=== PATIENT | female | born 1960 | race Caucasian/White ===

== ENCOUNTER 2020-03-16 22:07 | Emergency (ER) | payer BC, OTHER ==
[2020-03-16] MEDS ORDERED: Sodium Chloride 0.9% 10 ML Syringe FLUSH PRN (22:13)
[2020-03-16] MEDS ORDERED: fentaNYL 100 MCG/2 ML SDV IVPUSH ONE (22:21)
[2020-03-16] MEDS ORDERED: Ondansetron 4 MG/2 ML SDV IV ONE (22:21)
[2020-03-16] MEDS ORDERED: Lactated Ringers 1,000 ML IV ONE (22:24)
--- NOTE | 2020-03-16 22:24 | EDM.PDOC ---
ED HPI GENERAL MEDICAL PROBLEM - General Chief Complaint: Gastrointestinal Problem Stated Complaint: ER Time Seen by Provider: 03/16/20 22:18 Source of Information: Reports: Patient History Limitations: Reports: No Limitations - History of Present Illness INITIAL COMMENTS - FREE TEXT/NARRATIVE: Patient comes emergency department today from work with concerns of a sudden onset of mid abdominal pain. This patient had a gastric bypass in [address] [facility] [address] Harshal Stoddard. Really has not had much problem since her gastric bypass in 2013. She has had a gallbladder removed as well. She has felt well the last couple of days. She had a sudden onset of mid abdominal pain starting about 1900 hrs. tonight. She is really not nauseated. Pain is a constant pain in her mid abdomen. She has had no vomiting. No fever no chills. No hematuria dysuria or urinary frequency. The pain in her abdomen is now starting to go into her back. Abdominal Pain Score (Numeric/FACES): 4 - Related Data Allergies Allergy/AdvReac Type Severity Reaction Status Date / Time bacitracin Allergy Rash Verified 03/16/20 22:09 [From Neosporin ([id number])] bacitracin zinc Allergy Rash Verified 03/16/20 22:09 [From Neosporin ([id number])] bupropion [From Wellbutrin] Allergy Other Verified 03/16/20 22:59 bupropion HCl Allergy Other Verified 03/16/20 22:09 [From Wellbutrin] gabapentin Allergy Other Verified 03/16/20 22:59 Influenza Virus Vaccines Allergy Hives Verified 03/16/20 22:59 neomycin sulfate Allergy Rash Verified 03/16/20 22:09 [From Neosporin ([id number])] polymyxin B Allergy Rash Verified 03/16/20 22:09 [From Neosporin ([id number])] bandaids Allergy Rash Uncoded 03/16/20 22:09 metal Allergy Rash Uncoded 03/16/20 22:09 Home Meds: Home Meds Acetaminophen [Tylenol Arthritis Pain] 650 mg PO Q8H PRN 09/23/14 [History] Hydrochlorothiazide 50 mg PO DAILY PRN 09/23/14 [History] Calcium Carb, Citrate/Vit D3 [Citracal + D ER] 1 each PO BID 03/16/20 [History] Celecoxib [CeleBREX] 200 mg PO BID 03/16/20 [History] Cholecalciferol (Vitamin D3) [Vitamin D3] 2,000 unit PO DAILY 03/16/20 [History] Cyanocobalamin (Vitamin B-12) [B-12] 500 mcg PO DAILY 03/16/20 [History] Magnesium Oxide 400 mg PO DAILY 03/16/20 [History] Multivitamin 1 each PO DAILY 03/16/20 [History] Nystatin [Nystatin Oral Syringe] 500,000 unit TOP ASDIRECTED PRN 03/16/20 [History] Omeprazole 20 mg PO BID 03/16/20 [History] Potassium Chloride [Klor-Con 10] 10 meq PO BID 03/16/20 [History] methocarbamoL [Methocarbamol] 500 mg PO TID PRN 03/16/20 [History] Past Medical History - Past Surgical History GI Surgical History: Reports: Bariatric Procedure Social & Family History - Tobacco Use Smoking Status *Q: Current Status Unknown ED ROS GENERAL - Review of Systems Review Of Systems: Comprehensive ROS is negative, except as noted in HPI. ED EXAM, GI/ABD - Physical Exam Exam: See Below Exam Limited By: No Limitations General Appearance: Alert, WD/WN, Mild Distress Eyes: Bilateral: EOMI Ears: Normal External Exam Nose: Normal Inspection Throat/Mouth: Normal Inspection Head: Atraumatic, Normocephalic Neck: Normal Inspection, Supple, Non-Tender Respiratory/Chest: No Respiratory Distress, Lungs Clear, Normal Breath Sounds, No Accessory Muscle Use Cardiovascular: Normal Peripheral Pulses, Regular Rate, Rhythm GI/Abdominal Exam: Normal Bowel Sounds, Soft, Guarding (mid abd. ), Tender (mid abd. ). No: Distended, Rigid, Rebound, Hernia (Female) Exam: Deferred Rectal (Female) Exam: Deferred Back Exam: Normal Inspection, Full Range of Motion Extremities: Normal Inspection, Normal Range of Motion Neurological: Alert, Oriented, Normal Cognition, Normal Gait, No Motor/Sensory Deficits Psychiatric: Normal Affect, Normal Mood Skin Exam: Warm, Dry, Intact, Normal Color, No Rash Lymphatic: No Adenopathy Course - Vital Signs Last Recorded V/S: Last Vital Signs Temp 98.3 F 03/17/20 00:14 Pulse 74 03/17/20 00:14 Resp 16 03/17/20 00:14 BP 148/81 H 03/17/20 00:14 Pulse Ox 96 03/17/20 00:14 - Orders/Labs/Meds Orders: Active Orders 24 hr Category Date Time Status Abdomen Pelvis w Cont [CT] Stat Exams 03/16/20 22:14 Ordered Sodium Chloride 0.9% [Saline Flush] Med 03/16/20 22:13 Active 10 ml FLUSH ASDIRECTED PRN Peripheral IV Insertion Adult [OM.PC] Stat Oth 03/16/20 22:13 Ordered Medication Orders Sodium Chloride (Saline Flush) 10 ml FLUSH ASDIRECTED PRN PRN Reason: Keep Vein Open Labs: Laboratory Tests 03/16/20 03/16/20 03/16/20 Range/Units 22:33 22:33 22:33 WBC 10.8 H (4.0-10.0) x10^3/uL RBC 4.41 (4.00-5.50) x10^6/uL Hgb 13.4 (12.0-16.0) g/dL Hct 38.6 (33.0-47.0) % MCV 87.5 D (78.0-93.0) fL MCH 30.4 (26.0-32.0) pg MCHC 34.7 (32.0-36.0) g/dL RDW Coeff of Jennifer 15.6 H (10.0-15.0) % Plt Count 348 (130-400) x10^3/uL Neut % (Auto) 66.4 (50.0-80.0) % Lymph % (Auto) 24.0 L (25.0-50.0) % [place] % (Auto) 8.2 (2.0-11.0) % Eos % (Auto) 1.1 (0.0-4.0) % Baso % (Auto) 0.3 (0.2-1.2) % Sodium 135 L (136-145) mmol/L Potassium 3.6 (3.5-5.1) mmol/L Chloride 99 (98-107) mmol/L Carbon Dioxide 26 (21-32) mmol/L Anion Gap 13.6 (10-20) mmol/L BUN 30 H (7-18) mg/dL Creatinine 0.9 (0.55-1.02) mg/dL Est Cr Clr Drug Dosing TNP Estimated GFR (MDRD) > 60 Glucose 96 (74-106) mg/dL Lactic Acid 1.1 (0.4-2.0) mmol/L Calcium 9.2 (8.5-10.1) mg/dL Corrected Calcium 8.96 (8.5-10.1) mg/dL Total Bilirubin 0.4 (0.2-1.0) mg/dL AST 24 (15-37) U/L ALT 32 (14-59) U/L Alkaline Phosphatase 74 (46-116) U/L C-Reactive Protein < 0.2 (<=0.9) mg/dL Total Protein 7.2 (6.4-8.2) g/dL Albumin 4.3 (3.4-5.0) g/dL Globulin 2.9 Albumin/Globulin Ratio 1.48 Urine Color (YELLOW) Urine Appearance (CLEAR) Urine pH (5.0-8.0) Ur Specific Brandon Urine Protein (NEGATIVE) mg/dL Urine Glucose (UA) (NEGATIVE) mg/dL Urine Ketones (NEGATIVE) mg/dL Urine Occult Blood (NEGATIVE) Urine Nitrite (NEGATIVE) Urine Bilirubin (NEGATIVE) Urine Urobilinogen (0.2) EU/dL Ur Leukocyte Esterase (NEGATIVE) Urine RBC (NOT SEEN) /HPF Urine WBC (NOT SEEN) /HPF Ur Squamous Epith Cells (NEGATIVE) /HPF Urine Bacteria (NEGATIVE) /HPF Urine Mucus (NEGATIVE) /LPF 03/16/20 Range/Units 22:34 WBC (4.0-10.0) x10^3/uL RBC (4.00-5.50) x10^6/uL Hgb (12.0-16.0) g/dL Hct (33.0-47.0) % MCV (78.0-93.0) fL MCH (26.0-32.0) pg MCHC (32.0-36.0) g/dL RDW Coeff of Jennifer (10.0-15.0) % Plt Count (130-400) x10^3/uL Neut % (Auto) (50.0-80.0) % Lymph % (Auto) (25.0-50.0) % [place] % (Auto) (2.0-11.0) % Eos % (Auto) (0.0-4.0) % Baso % (Auto) (0.2-1.2) % Sodium (136-145) mmol/L Potassium (3.5-5.1) mmol/L Chloride (98-107) mmol/L Carbon Dioxide (21-32) mmol/L Anion Gap (10-20) mmol/L BUN (7-18) mg/dL Creatinine (0.55-1.02) mg/dL Est Cr Clr Drug Dosing Estimated GFR (MDRD) Glucose (74-106) mg/dL Lactic Acid (0.4-2.0) mmol/L Calcium (8.5-10.1) mg/dL Corrected Calcium (8.5-10.1) mg/dL Total Bilirubin (0.2-1.0) mg/dL AST (15-37) U/L ALT (14-59) U/L Alkaline Phosphatase (46-116) U/L C-Reactive Protein (<=0.9) mg/dL Total Protein (6.4-8.2) g/dL Albumin (3.4-5.0) g/dL Globulin Albumin/Globulin Ratio Urine Color Yellow (YELLOW) Urine Appearance Clear (CLEAR) Urine pH 6.0 (5.0-8.0) Ur Specific Brandon 1.020 Urine Protein Negative (NEGATIVE) mg/dL Urine Glucose (UA) Negative (NEGATIVE) mg/dL Urine Ketones Negative (NEGATIVE) mg/dL Urine Occult Blood Trace-intact H (NEGATIVE) Urine Nitrite Negative (NEGATIVE) Urine Bilirubin Negative (NEGATIVE) Urine Urobilinogen 0.2 (0.2) EU/dL Ur Leukocyte Esterase Negative (NEGATIVE) Urine RBC 0-5 (NOT SEEN) /HPF Urine WBC 0-5 (NOT SEEN) /HPF Ur Squamous Epith Cells Few H (NEGATIVE) /HPF Urine Bacteria Not seen (NEGATIVE) /HPF Urine Mucus Not seen (NEGATIVE) /LPF Meds: Medications Generic Name Dose Route Start Last Admin Trade Name Freq PRN Reason Stop Dose Admin Sodium Chloride 10 ml 03/16/20 22:13 Saline Flush FLUSH ASDIRECTED PRN Keep Vein Open Discontinued Medications Generic Name Dose Route Start Last Admin Trade Name Freq PRN Reason Stop Dose Admin Fentanyl 50 mcg 03/16/20 22:21 03/16/20 22:35 Sublimaze IVPUSH 03/16/20 22:22 50 mcg ONETIME ONE Administration Fentanyl 50 mcg 03/16/20 22:39 03/16/20 22:41 Sublimaze IV 03/16/20 22:40 50 mcg ONETIME ONE Administration Lactated Ringer's 1,000 mls @ 999 mls/hr 03/16/20 22:24 Ringers, Lactated IV 03/16/20 23:24 ONETIME ONE Lactated Ringer's 500 mls @ 999 mls/hr 03/16/20 22:25 03/16/20 22:35 Ringers, Lactated IV 03/16/20 22:55 999 mls/hr ONETIME ONE Administration Iopamidol 100 ml 03/16/20 23:42 03/16/20 23:42 Isovue-300 (61%) IVPUSH 03/16/20 23:43 100 ml ONETIME ONE Administration Ondansetron HCl 4 mg 03/16/20 22:21 03/16/20 22:38 Zofran IV 03/16/20 22:22 4 mg ONETIME ONE Administration Polyethylene Glycol 34 gm 03/17/20 00:16 Miralax PO 03/17/20 00:17 ONETIME ONE - Radiology Interpretation Free Text/Narrative:: CT abdomen pelvis with IV contrast. No bowel obstruction, inflammation, ascites or free air. No obstructive uropathy. Previous cholecystectomy with increased intrahepatic and common bile ductal dilation compared to prior study. 1.4 mm on the common bile duct which is rather unremarkable from a previous 1 mm. Large amount of stool in the colon per radiology - Re-Assessments/Exams Free Text/Narrative Re-Assessment/Exam: 03/17/20 00:27 She was given fentanyl and Zofran with improvement of her pain. Laboratory evaluation is really unremarkable. CT scan as well as unremarkable showing small increase in the intrahepatic ductal system as well as common bile duct from 1.4 mm up from 1 mm which is really negligible with this patient's age. Does show a large amount of colonic stool in the colon as well. Finding any cause for abdominal pain at this time it could be related to the large amount of stool in the colon. We will give her some MiraLAX. She is not getting better in the next couple of days consider a ultrasound for the intrahepatic evaluation. She is comfortable with this plan and her questions are answered. Departure - Departure Time of Disposition: 00:28 Disposition: Home, Self-Care 01 Clinical Impression: Constipation, Abdominal pain - Discharge Information Instructions: Constipation, Adult, [id number], Abdominal Pain, Adult, [id number] Forms: ED Department Discharge Additional Instructions: Lots of fluids over the next few days. Miralax 1 capful in a large glass of water every day. Continue previous therapies. If pain continues see PCP and conside US of the abd of the hepatic system due to subtle but minimal changes in Common bile duct and intrahepatic system. Return to the ED if new or worsening symptoms. Follow up with PCP in the next 3-5 days if not improving sooner if worse. Sepsis Event Note (ED) - Evaluation Sepsis Screening Result: No Definite Risk - Focused Exam Vital Signs: Vital Signs Temp Pulse Resp BP Pulse Ox 03/17/20 00:14 98.3 F 74 16 148/81 H 96 03/16/20 22:10 98.8 F 89 18 144/100 H 94 L - My Orders Last 24 Hours: My Active Orders 03/16/20 22:13 Sodium Chloride 0.9% [Saline Flush] 10 ml FLUSH ASDIRECTED PRN Peripheral IV Insertion Adult [OM.PC] Stat 03/16/20 22:14 Abdomen Pelvis w Cont [CT] Stat - Assessment/Plan Last 24 Hours: My Active Orders 03/16/20 22:13 Sodium Chloride 0.9% [Saline Flush] 10 ml FLUSH ASDIRECTED PRN Peripheral IV Insertion Adult [OM.PC] Stat 03/16/20 22:14 Abdomen Pelvis w Cont [CT] Stat Assessment:: Constipation ABD pain ? if from constipation. Hx of gastric bypass. Plan: Lots of fluids over the next few days. Miralax 1 capful in a large glass of water every day. Continue previous therapies. If pain continues see PCP and conside US of the abd of the hepatic system due to subtle but minimal changes in Common bile duct and intrahepatic system. Return to the ED if new or worsening symptoms. Follow up with PCP in the next 3-5 days if not improving sooner if worse.
[2020-03-16] MEDS ORDERED: Lactated Ringers 500 ML IV ONE (22:25)
[2020-03-16] MEDS ORDERED: fentaNYL 100 MCG/2 ML SDV IV ONE (22:39)
[2020-03-16 22:59] LABS: CHLORIDE,CL 99 mmol/L (98-107); SODIUM,NA 135 mmol/L (136-145)
[2020-03-16 23:00] LABS: ANION GAP 13.6 mmol/L (10-20)
[2020-03-16] MEDS ORDERED: Iopamidol 612 MG/ML 100 ML Bottle IVPUSH ONE (23:42)
[2020-03-17 00:15] VITALS: BP 148/81; PULSE 74
[2020-03-17] MEDS ORDERED: Polyethylene Glycol 3350 Powder 17 GM Packet PO ONE (00:16)
--- NOTE | 2020-03-17 08:01 | CT ---
[id number] CT/CT Abdomen Pelvis W IV EXAM: CT Abdomen Pelvis W IV CLINICAL DATA: GASTRIC BYPASS ABDOMINAL PAIN COMPARISON: NO PREVIOUS SIMILAR EXAM IS AVAILABLE. FINDINGS: There is a report of previous studies and previous reports These studies and reports are not currently available to this radiologist There is mild discoid atelectasis at the right lung base The liver and spleen show no focal abnormalities The gallbladder is moderately distended There appear to be small gallstones Surgical changes are identified related to the gastric bypass The appendix appears normal The appendix is best seen on image 71, series 3. The pelvis shows no mass, adenopathy, diverticulitis, or abscess There is no free air or free fluid There is no bowel wall thickening or pneumatosis There are mild atheromatous calcifications The adrenals, kidneys, and pancreas show no acute abnormalities. IMPRESSION: NO ACUTE PROCESS SURGICAL CHANGES GALLSTONES NORMAL APPENDIX Terrence Hunter MD 03/17/20 0758 Thank you for allowing us to participate in the care of your patient.
== END 2020-03-17 00:40 | disposition home or self-care (01) ==
LOC: VM.ED 22:07
DX: K59.00 Constipation, unspecified (principal); Z98.84 Bariatric surgery status; Z79.899 Other long term (current) drug therapy; Z88.8 Allergy status to other drugs, medicaments and biological substances; Z88.7 Allergy status to serum and vaccine; Z88.1 Allergy status to other antibiotic agents; Z91.048 Other nonmedicinal substance allergy status
CPT/HCPCS: 74177; 80053; 81001; 83605; 85025; 86140; 96374; 96375; 99284; A9270; J2405; J3010; J7120; Q9967